=== PATIENT | male | born 1950 | race Caucasian/White ===

== ENCOUNTER 2017-05-04 21:32 | Observation (INO) | payer MEDICARE, MEDICAID ==
[~2017-05-04] VITALS: Ht 180.3 cm; Wt 89.1 kg
[~2017-05-04 21:32] MED LIST: ASPIRIN81 MG PO; ATIVAN0.5 MG PO; BETAPACE 120 M120 MG PO; COREG 3.1253.125 MG; COUMADIN2.5 MG PO; HUMULIN R100 U/ML SQ; HYDROCHLOROTH12.5 M1 PO; LEVEMIR100 U/M1 SQ; MIDODRINE HCL5 MG PO; NEURONTIN 300300 MG; NEURONTIN 300300 MG PO; PHOSLO667 MG PO; PLAVIX75 MG PO; PRILOSEC20 MG PO; RESTORIL15 MG PO; ZOCOR40 MG PO
[2017-05-04 23:50] VITALS: BP 158/85
[2017-05-05] VITALS (12 sets, daily range): BP systolic 138–174; BP diastolic 65–94; Ht 180.3 cm; Wt 89.1 kg
[2017-05-05 02:07] LABS: BASOPHILS 0 % (0-2); EOSINOPHILS 0 % (0-7); HEMATOCRIT 28.6 % (42.0-54.0); HEMOGLOBIN 9.5 g/dL (13.5-17.5); IMMATURE GRANULOCYTES 0.1 % (0-5); LYMPHOCYTES 2.1 % (15-50); MCH 30.8 pg (26.0-34.0); MCHC 33.2 g/dL (31.0-37.0); MCV 92.9 fL (80.0-100.0); MEAN PLATELET VOLUME 10.1 fL (7.4-10.4); MONOCYTES 0.5 % (2-11); NEUTROPHILS 97.3 % (40-80); PLATELET COUNT 189 10x3/uL (130-400); RBC 3.08 10x6/uL (4.20-6.10); RDW 14.2 % (11.5-14.5); WBC 8.4 10x3/uL (4.8-10.8)
[2017-05-05 02:13] LABS: CKMB 3.8 U/L (0.0-3.6); CREATINE KINASE 104 UL (21-232)
[2017-05-05 02:14] LABS: TROPONIN-I 0.152 ng/mL (0.000-0.060)
[2017-05-05 02:25] LABS: ALBUMIN 3.3 g/dL (3.4-5.0); ANION GAP 16.5 mmol/L (8-16); BILIRUBIN - TOTAL 0.63 mg/dL (0.2-1.3); CALCIUM 8.2 mg/dL (8.5-10.1); CARBON DIOXIDE 25.5 mmol/L (21.0-32.0); PROTEIN - SERUM 7.7 g/dL (6.4-8.2)
[2017-05-05 08:08] LABS: CKMB 3.4 U/L (0.0-3.6); CREATINE KINASE 110 UL (21-232); TROPONIN-I 0.194 ng/mL (0.000-0.060)
[2017-05-06 06:21] LABS: HEPATITIS C ANTIBODY 0.1 (0.0-0.9)
== END 2017-05-05 16:30 | disposition home or self-care (01) ==
LOC: D.ICU 21:32 → OBSVTIME 23:49 → D.ICU 05-05 16:30
PROVIDERS: Internal Medicine Nephrology
DX: I12.0 Hypertensive chronic kidney disease with stage 5 chronic kidney disease or end stage renal disease (principal); N18.6 End stage renal disease; J96.12 Chronic respiratory failure with hypercapnia; J96.11 Chronic respiratory failure with hypoxia; E11.22 Type 2 diabetes mellitus with diabetic chronic kidney disease; Z99.2 Dependence on renal dialysis; J44.9 Chronic obstructive pulmonary disease, unspecified; D64.9 Anemia, unspecified; E11.649 Type 2 diabetes mellitus with hypoglycemia without coma; G93.40 Encephalopathy, unspecified

== ENCOUNTER → 2019-02-15 10:53 | Outpatient (CLI) | payer MEDICARE, MEDICAID ==
[2017-05-05 09:24] VITALS: BMI 27.4
--- NOTE | ~2019-02-15 | EC ---
PATIENT:RESHMA TRAORE III DATE OF SERVICE: 02/15/19 SEX: M MEDICAL RECORD: [id number] DATE OF : [birth year] LOCATION:[facility] AGE OF PATIENT: 69 ADMISSION DATE: 02/15/19 REFERRING PHYSICIAN: INTERPRETING PHYSICIAN: MARIYA SILVA MD ECHOCARDIOGRAM REPORT ECHO CHARGES 4 ECHO COMPLETE Date: 02/15/19 CLINICAL DIAGNOSIS: MVR HX CAD/HTN ECHOCARDIOGRAPHIC MEASUREMENTS (adult normal given) AC root (d.<3.7cm) 4.0 cm LV Septum d (<1.2 cm> 1.3 cm Valve Excursion 1.3 cm LV Septum (systole) 1.7 cm Left Atria (s.<4.0cm> 3.2 cm LVPW d(<1.2cm) 1.4 cm RV (d.<2.3cm) 3.8 cm LVPW (sytole) 1.7 cm LV diastole(<5.6CM) 4.8 cm MV E-F(>70mm/sec) cm LV systole 3.1 cm LVOT Diameter 2.0 cm MV exc.(>10mm) cm Est.ejection fraction (50-75%) % DOPPLER: LVIT cm/sec A 94.0 cm/sec E 147.0 cm/sec LA cm/sec RVSP 40 mmHg LVOT 126 cm/sec AOP1/2T m/s Asc. 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 Silva TAPE# pacs Pericardial Effusion N DATE OF SERVICE: Echocardiogram FINDINGS: 1. Left ventricular chamber size is within normal limits. Left ventricular systolic function is normal. Overall ejection fraction estimated at 55% to 60%. 2. Left atrium, right atrium, and right ventricular chamber sizes are within normal limits. 3. Valvular structures have normal structure and motion. ECHOCARDIOGRAM REPORT [id number] RESHMA TRAORE III 4. Doppler interrogation reveals mild tricuspid regurgitation, no other valvular insufficiency or stenosis. Pulmonary systolic pressure is estimated at 40 mmHg. 5. No evidence of pericardial effusion or left ventricular thrombus. TRANSINT:[id number] Voice Confirmation ID: [id number] DOCUMENT ID: [id number] MARIYA SILVA MD CC: [id number] DICTATION DATE: 02/15/19 143 CHRONIC SPECIALIST: 02/15/19 2237 [facility] [address] [id number]
== END | disposition home or self-care (01) ==
LOC: D.HCCECHO 02-14 09:30
PROVIDERS: ATTEND Internal Medicine Interventional Cardiology
DX: I08.2 Rheumatic disorders of both aortic and tricuspid valves (principal)